=== PATIENT | female | born 1955 | race American Indian/Alaskan Native ===

== ENCOUNTER 2017-01-23 14:44 | Outpatient (CLI) | payer OTHER ==
--- NOTE | 2017-01-23 16:14 | Mammography Report ---
BILATERAL DIGITAL SCREENING MAMMOGRAM with CAD: 01/23/17 CLINICAL: Routine screening. COMPARISON:None available. However, a prior mammogram was apparently done at [facility]. FINDINGS: The breasts are almost entirely fatty. Right low density asymmetries require comparison with the prior mammogram.No architectural distortion or suspicious calcifications.The left breast is negative. IMPRESSION: Right asymmetries requiring further evaluation. BI-RADS CATEGORY: 0 -- Additional Evaluation Required RECOMMENDATION: Comparison with a previous mammogram. We will attempt to obtain a prior mammogram and May comparison. If we do not obtain a prior mammogram within 30 days, a revised report will be issued recommending a recall. Please be advised that the patient should not schedule an appointment for return until adequate time (at least 2 weeks) has passed for us to obtain the prior mammogram. ACR BI-RADS MAMMOGRAPHIC CODES: 0 = Needs additional imaging evaluation; 1 = Negative; 2 = Benign; 3 = Probably benign; 4 = Suspicious; 5 = Malignant; 6 = Known biopsy-proven malignancy COMMENT: 1. Dense breast tissue, i.e., adenosis, fibrocystic changes, etc., may obscure an underlying neoplasm. 2. Approximately 10% of cancers are not detected with mammography. 3. A negative mammography report should not delay biopsy if a clinically suspicious mass is present. COMMENT: Patient follow-up letters are generated via our [employer] application.
== END 2017-01-23 14:45 | disposition home or self-care (01) ==
LOC: SPVWC 14:44
PROVIDERS: ATTEND Family Medicine
DX: Z12.31 Encounter for screening mammogram for malignant neoplasm of breast (principal)
CPT/HCPCS: 77067; G0202

== ENCOUNTER 2017-03-31 13:07 | Emergency (ER) | payer OTHER ==
[2017-03-31] MEDS ORDERED: TYLENOL/CODEINE PO ONE (17:47)
[2017-03-31] MEDS ORDERED: ZITHROMAX PO ONE (17:47)
[2017-03-31] MEDS ORDERED: DELTASONE PO ONE (17:47)
--- NOTE | 2017-03-31 17:52 | Emergency Department Report ---
HPI - General Chief Complaint: Upper Respiratory Infection Time Seen by Provider: 03/31/17 16:30 - HPI HPI: this is a 61-year-old female with a history of diabetes and hypertension on managed with medication presents to ED complaining of productive greenish cough for the past 3 days. Patient states she has been coughing intermittently throughout the day for the past 3 days and has been progressively worse. Patient states cough and has become so bad that she is constantly coughing. She denies fever/chills/nausea/vomiting/abdominal pain/chest pain/shortness of breath/headache/blurred vision or any other problems. ED Past Medical Hx - Past Medical History Hx Hypertension: Yes Hx CVA: Yes Hx Diabetes: Yes - Social History Smoking Status: Never Smoker Substance Use Type: None - Medications Home Medications: Home Medications Medication Instructions Recorded Confirmed Last Taken Type ALBUTEROL Inhaler [Proair] 2 puff IH QID PRN #1 pump 03/31/17 Unknown Rx Acetamin/Codeine 120-12Mg/5 ml 5 ml PO TID PRN #80 ml 03/31/17 Unknown Rx [Tylenol/Codeine 120-12 mg/5 ml] Azithromycin [Zithromax] 250 mg PO DAILY #4 tablet 03/31/17 Unknown Rx Prednisone [predniSONE 10 mg 10 mg PO .TAPER #1 tab.ds.pk 03/31/17 Unknown Rx (6-Day Pack, 21 Tabs)] guaiFENesin [Mucinex] 600 mg PO BID #30 tab.er.12h 03/31/17 Unknown Rx ED Review of Systems ROS: Stated complaint: HEADACHE Other details as noted in HPI Constitutional: denies: chills, fever Eyes: denies: eye pain, eye discharge, vision change ENT: denies: ear pain, throat pain, dental pain, hearing loss, congestion Respiratory: see HPI, cough, wheezing. denies: shortness of breath, SOB with exertion, SOB at rest Cardiovascular: denies: chest pain, palpitations Endocrine: no symptoms reported Gastrointestinal: denies: abdominal pain, nausea, vomiting, diarrhea, constipation, hematemesis Genitourinary: denies: urgency, dysuria, frequency, hematuria, discharge Musculoskeletal: denies: back pain, joint swelling, arthralgia, myalgia Skin: denies: rash, lesions, pruritus Neurological: denies: headache, weakness, numbness, paresthesias, confusion Psychiatric: denies: anxiety, depression Hematological/Lymphatic: denies: easy bleeding, easy bruising Physical Exam - Physical Exam Vital Signs: Vital Signs 03/31/17 14:14 Temperature 98.2 F Pulse Rate 73 Blood Pressure 161/95 O2 Sat by Pulse 98 Oximetry Physical Exam: GENERAL: Alert and oriented x3, no apparent distress, Normal Gait, atraumatic. HEAD: Head is normocephalic and a-traumatic. EYES: Extra ocular muscles are intact. Pupils are equal, round, and reactive to light and accommodation. EARS: symetrical, atraumatic, non tender, ear canal clear and moderate cerumen, tympanic membrance non inflamed. gross auditory nml bilaterally. NOSE: Nose symetrical, Nontender,Nares appeared normal. MOUTH:Mouth is well hydrated and without lesions. Tonsils nonerythematous or swollen, Uvula midline, Tongue not elevated. Mucous membranes are moist. Posterior pharynx clear, no exudate or lesions. Patent airways. NECK: Supple. Non edematous, No carotid bruits. No lymphadenopathy or thyromegaly. No C-spine tenderness LUNGS: Symetrical with respiration, mild wheezing bilat, no rales or crackles, adventitious breath sounds. no use of accessory muscles. HEART: S1, S2 present, regular rate and rhythm without murmur, no rubs, no gallops. NEUROLOGIC: The patient is cooperative with no focal neurologic deficits. Cranial nerves II through XII are grossly intact. Normal speech. SKIN: Warm and dry, No lesions, No ulceration or induration present. ED Course Vital Signs 03/31/17 14:14 Temperature 98.2 F Pulse Rate 73 Blood Pressure 161/95 O2 Sat by Pulse 98 Oximetry ED Medical Decision Making - Radiology Data Radiology results: report reviewed, image reviewed FINAL REPORT EXAM: XR CHEST ROUTINE 2V HISTORY: cough/celio/ TECHNIQUE: PA and lateral chest radiographs PRIORS: None. FINDINGS: No focal consolidations are seen in the lungs and there are no pleural effusions.The cardiomediastinal silhouette is within normal limits for size and contour. Sclerotic changes noted in the T10 vertebral body. Degenerative changes are seen in the spine. There are surgical clips in the upper abdomen. IMPRESSION: 1. No definite radiographic evidence of acute cardiopulmonary disease. 2. No focal infiltrate is identified. 3. Sclerotic change is noted in the T10 vertebral body. This may indicate metastatic disease. There are currently no studies available for direct comparison. This can be further assessed with CT, MRI or nuclear medicine bone scan if indicated. UNF Transcribed By: VIJAY Dictated By: ADITYA MAHONEY MD Electronically Authenticated By: ADITYA MAHONEY MD Signed Date/Time: 03/31/171934 - Medical Decision Making Patient presents with upper respiratory infection ED course: Chest x-ray ordered. Chest x-ray shows some sclerotic changes in the temporal body T10. Otherwise normal See above Patient received Tylenol 3, 60 mg of prednisone, azithromycin 500. Discussed x-ray findings the patient is to see above. Discussed the patient's medication as prescribed. Discussed chest x-ray findings the patient. I discussed the patient cannot rule out metastatic disease so she needs to follow up with primary care physician as well as specialist as referred. Discussed the patient's definitive follow-up care result a metastatic disease such as cancer or worse . Patient understands discussion. She states she will follow up. Patient is alert and oriented 3 vital signs are normal she is in no acute distress She understands instructions given discussed the patient in follow-up. Primary care physician 5-7 days. Critical care attestation.: If time is entered above; I have spent that time in minutes in the direct care of this critically ill patient, excluding procedure time. ED Disposition Clinical Impression: URI with cough and congestion, Bony sclerosis Disposition: DISCHARGED TO HOME OR SELFCARE Is pt being admited?: No Does the pt Need Aspirin: No Condition: Stable Instructions: Upper Respiratory Infection (ED), Bone Scintigraphy (ED) Prescriptions: Acetamin/Codeine 120-12Mg/5 ml [Tylenol/Codeine 120-12 mg/5 ml] 5 ml PO TID PRN #80 ml PRN Reason: Pain ALBUTEROL Inhaler [Proair] 2 puff IH QID PRN #1 pump PRN Reason: Shortness Of Breath Azithromycin [Zithromax] 250 mg PO DAILY #4 tablet guaiFENesin [Mucinex] 600 mg PO BID #30 tab.er.12h Prednisone [predniSONE 10 mg (6-Day Pack, 21 Tabs)] 10 mg PO .TAPER #1 tab.ds.pk Referrals: PRIMARY CARE, [Primary Care Provider] - 3-5 Days CLEOPATRA CHAVEZ MD [Advanced Practice Nurse] - 3-[address] MD [Staff Physician] - 3-5 Days FELI SAWYER MD [Staff Physician] - 3-5 Days LIBERTY AGUILA MD [Staff Physician] - 3-5 Days MAGDA DIA MD [Referring] - 3-[address] [facility] [place] [Outside] - 3-5 Days Forms: Accompanied Note, Work/School Release Form(ED) Time of Disposition: 20:42
[2017-03-31] MEDS ORDERED: DUONEB 0.5 MG-3 MG/3 ML SOLN IH ONE (18:10)
--- NOTE | 2017-03-31 19:40 | XRay Report ---
FINAL REPORT EXAM: XR CHEST ROUTINE 2V HISTORY: cough/celio/ TECHNIQUE: PA and lateral chest radiographs PRIORS: None. FINDINGS: No focal consolidations are seen in the lungs and there are no pleural effusions.The cardiomediastinal silhouette is within normal limits for size and contour. Sclerotic changes noted in the T10 vertebral body. Degenerative changes are seen in the spine. There are surgical clips in the upper abdomen. IMPRESSION: 1. No definite radiographic evidence of acute cardiopulmonary disease. 2. No focal infiltrate is identified. 3. Sclerotic change is noted in the T10 vertebral body. This may indicate metastatic disease. There are currently no studies available for direct comparison. This can be further assessed with CT, MRI or nuclear medicine bone scan if indicated. UNF
[2017-03-31 20:06] VITALS: BP 150/83
== END 2017-03-31 20:55 | disposition home or self-care (01) ==
LOC: ED 13:07
DX: J06.9 Acute upper respiratory infection, unspecified (principal); M89.9 Disorder of bone, unspecified; R09.81 Nasal congestion; R05 Cough; I10 Essential (primary) hypertension; I63.9 Cerebral infarction, unspecified; E11.9 Type 2 diabetes mellitus without complications
CPT/HCPCS: 71020; 94640; 96372; 99283; J2930

== ENCOUNTER 2017-12-16 16:02 | Emergency (ER) | payer OTHER ==
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
[2017-12-16 23:05] VITALS: BP 169/89
== END 2017-12-16 23:03 | disposition home or self-care (01) ==
LOC: ED 16:02
DX: S39.012A Strain of muscle, fascia and tendon of lower back, initial encounter (principal); V49.49XA Driver injured in collision with other motor vehicles in traffic accident, initial encounter; Y93.89 Activity, other specified; Y92.89 Other specified places as the place of occurrence of the external cause; Y99.8 Other external cause status
CPT/HCPCS: 99282

== ENCOUNTER 2018-03-05 15:17 | Outpatient (CLI) | payer OTHER ==
--- NOTE | 2018-03-05 16:37 | Mammography Report ---
BILATERAL DIGITAL SCREENING MAMMOGRAM with CAD: 03/05/18 15:17:00 CLINICAL: Routine screening. COMPARISON:01/23/17 FINDINGS: The breasts are almost entirely fatty. No new mass, architectural distortion or suspicious calcifications. IMPRESSION: No mammographic evidence of malignancy. BI-RADS CATEGORY: 2 -- Benign RECOMMENDATION: Routine mammographic screening in one year. COMMENT: Patient follow-up letters are generated by our [employer] application.
--- NOTE | 2018-03-05 16:38 | Mammography Report ---
BONE DEXA:03/05/18 15:17:00 CLINICAL: Postmenopausal. No comparison. TECHNIQUE: Two site bone DEXA performed on an Hologic scanner. FINDINGS: The average BMD of the lumbar spine L1-L4 is 1.386g/cm squared with a T-score of +2.1 and a Z-score of +4.0. The average BMD of the left hip is 1.193g/cm squared with a T-score of +1.0 and a Z-score of +2.0. IMPRESSION: WHO classification: Normal with average fracture risk based on both spine and left hip measurements. RECOMMENDATION: Clinical correlation and routine screening. DEFINITIONS: BMD = Bone Mineral Density T-score = BMD related to mean peak bone mass of young adult (mean expressed in Standard Deviation) Z-score = Age matched BMD expressed in SD World Health Organization (WHO) Diagnostic Criteria Normal T-score > -1 SD Osteopenia T-score between -1 and -2.4 SD Osteoporosis T-score -2.5 SD or below NOTE: BMD is not the only risk factor for fracture. One should also consider factors such as the patient's age, risk of falling, previous osteoporotic fracture, family history of osteoporotic fractures, current smoker, and low body weight. Z-scores are not calculated if >80 years of age.
== END 2018-03-05 15:18 | disposition home or self-care (01) ==
LOC: SPVWC 15:17
PROVIDERS: ATTEND Family Medicine
DX: Z12.31 Encounter for screening mammogram for malignant neoplasm of breast (principal); Z13.820 Encounter for screening for osteoporosis; Z78.0 Asymptomatic menopausal state
CPT/HCPCS: 77067; 77080

== ENCOUNTER 2018-06-07 00:16 | Emergency (ER) | payer OTHER ==
[2018-06-07] MEDS ORDERED: ASPIRIN PO ONE (01:24)
[2018-06-07 01:38] LABS: Basophils # (Auto) 0.1 K/mm3 (0.0-0.1); Basophils % (Auto) 1.4 % (0.0-1.8); Eosinophils # (Auto) 0.1 K/mm3 (0.0-0.4); Eosinophils % (Auto) 1.9 % (0.0-4.3); Hematocrit 40.5 % (30.3-42.9); Hemoglobin 13.4 gm/dl (10.1-14.3); Lymphocytes # (Auto) 3.1 K/mm3 (1.2-5.4); Lymphocytes % (Auto) 41.8 % (13.4-35.0); Mean Corpuscular HGB Conc 33 % (30-34); Mean Corpuscular Hemoglobin 28 pg (28-32); Mean Corpuscular Volume 83 fl (79-97); Monocytes # (Auto) 0.7 K/mm3 (0.0-0.8); Monocytes % (Auto) 9.1 % (0.0-7.3); Platelet Count 215 K/mm3 (140-440); Red Blood Count 4.88 M/mm3 (3.65-5.03); Red Cell Distribution Width 14.9 % (13.2-15.2)
[2018-06-07 02:20] LABS: BUN/Creatinine Ratio 27; Blood Urea Nitrogen 16 mg/dL (7-17); Calcium 9.4 mg/dL (8.4-10.2); Hemolysis Index 11
--- NOTE | 2018-06-07 03:16 | Emergency Department Report ---
HPI - General Chief Complaint: Chest Pain Time Seen by Provider: 06/07/18 03:13 - HPI HPI: 63-year-old female with no medical history of any CAD presents to ER with no sided chest pain, that started yesterday. She is currently pain-free. She describes the pain as sharp, and also had numbness in the left side. 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 Her blood pressure was high at the time. She took her medicine which improved the pain. She denies any diaphoresis, shortness of breath, PND or orthopnea. ED Past Medical Hx - Past Medical History Hx Hypertension: Yes Hx CVA: Yes Hx Diabetes: Yes - Social History Smoking Status: Never Smoker Substance Use Type: None - Medications Home Medications: Home Medications Medication Instructions Recorded Confirmed Last Taken Type ALBUTEROL Inhaler [Proair] 2 puff IH QID PRN #1 pump 03/31/17 Unknown Rx Acetamin/Codeine 120-12Mg/5 ml 5 ml PO TID PRN #80 ml 03/31/17 Unknown Rx [Tylenol/Codeine 120-12 mg/5 ml] Azithromycin [Zithromax] 250 mg PO DAILY #4 tablet 03/31/17 Unknown Rx Prednisone [predniSONE 10 mg 10 mg PO .TAPER #1 tab.ds.pk 03/31/17 Unknown Rx (6-Day Pack, 21 Tabs)] guaiFENesin [Mucinex] 600 mg PO BID #30 tab.er.12h 03/31/17 Unknown Rx Cyclobenzaprine [Flexeril] 10 mg PO QHS PRN #20 tablet 12/16/17 Unknown Rx Naproxen [Naprosyn] 500 mg PO BID #30 tablet 12/16/17 Unknown Rx ED Review of Systems ROS: Stated complaint: CHEST PAIN,NUMBNESS IN LEFT ARM Other details as noted in HPI Comment: All other systems reviewed and negative Cardiovascular: chest pain Gastrointestinal: nausea Physical Exam - Physical Exam Vital Signs: Vital Signs 06/07/18 01:19 Temperature 98.7 F Pulse Rate 72 Respiratory 16 Rate Blood Pressure 186/94 O2 Sat by Pulse 98 Oximetry Physical Exam: GENERAL: Alert, well developed, in no acute distress. MENTAL STATUS: Judgment and insight appropriate for age. Oriented to time, place and person. No recent loss of memory. Affect appropriate for age. EYES: Pupils are equal and reactive to light. No hemorrhages or exudates. Extraocular muscles intact. EAR, NOSE AND THROAT: Oropharynx clean, mucous membranes moist. Ears and nose without masses, lesions or deformities. Tympanic membranes clear bilaterally. Trachea midline. No lymph node swelling or tenderness. RESPIRATORY: Clear to auscultation and percussion. No wheezing, rales or rhonchi. CARDIOVASCULAR: Heart sounds normal. No thrills. Regular rate and rhythm, no murmurs, rubs or gallops. GASTROINTESTINAL: Abdomen soft, nondistended. No pulsatile mass, no flank tenderness or suprapubic tenderness. No hepatosplenomegaly. NEUROLOGIC: Cranial nerves II-XII grossly intact. No focal neurological deficits. Deep tendon reflexes +2 bilaterally. Babinski negative. Moves all extremities spontaneously. Sensation intact bilaterally. SKIN: No rashes or lesions. No petechia. No purpura. Good turgor. No edema. MUSCULOSKELETAL: No cyanosis or clubbing. No gross deformities. Capable of free range of motion without pain or crepitation. No laxity, instability or dislocation. BONE: No misalignment, asymmetry, defect, tenderness or effusion. Capable of from of joint above and below bone. MUSCLE: No crepitation, defect, tenderness, masses or swellings. No loss of muscle tone or strength. LYMPHATIC: Palpation of neck reveals no swelling or tenderness of neck nodes. Palpation of groin reveals no swelling or tenderness of groin nodes. ED Course Vital Signs 06/07/18 01:19 Temperature 98.7 F Pulse Rate 72 Respiratory 16 Rate Blood Pressure 186/94 O2 Sat by Pulse 98 Oximetry ED Medical Decision Making - Lab Data Result diagrams: 06/07/18 01:26 06/07/18 01:26 Critical care attestation.: If time is entered above; I have spent that time in minutes in the direct care of this critically ill patient, excluding procedure time. ED Disposition Clinical Impression: Chest pain Qualifiers: Chest pain type: other chest pain Qualified Code(s): R07.89 - Other chest pain Disposition: - TO HOME OR SELFCARE Is pt being admited?: No Does the pt Need Aspirin: No Condition: Stable Instructions: Chest Pain (ED) Referrals: PRIMARY CARE, [Primary Care Provider] - 3-5 Days
[2018-06-07 06:28] VITALS: BP 159/87
== END 2018-06-07 06:22 | disposition home or self-care (01) ==
LOC: ED 00:16
DX: R07.89 Other chest pain (principal); R20.0 Anesthesia of skin; I10 Essential (primary) hypertension; E11.9 Type 2 diabetes mellitus without complications; Z86.73 Personal history of transient ischemic attack (TIA), and cerebral infarction without residual deficits
CPT/HCPCS: 36415; 80048; 84484; 85025; 93005; 93010; 99284

== ENCOUNTER 2019-03-17 14:31 | Outpatient (CLI) | payer OTHER ==
--- NOTE | 2019-03-18 08:15 | Mammography Report ---
BILATERAL DIGITAL SCREENING MAMMOGRAM with CAD: 03/17/19 14:31:00 CLINICAL: Routine screening. COMPARISON:03/05/18 FINDINGS: The breasts are almost entirely fatty.Stable bilateral low-density circumscribed right masses. No new mass, architectural distortion or suspicious calcifications. IMPRESSION: No mammographic evidence of malignancy. BI-RADS CATEGORY: 2 - - Benign RECOMMENDATION: Routine mammographic screening in one year. COMMENT: Patient follow-up letters are generated by our [employer] application.
== END 2019-03-17 14:32 | disposition home or self-care (01) ==
LOC: SPVWC 14:31
PROVIDERS: ATTEND Family Medicine
DX: Z12.31 Encounter for screening mammogram for malignant neoplasm of breast (principal); I10 Essential (primary) hypertension
CPT/HCPCS: 77067

== ENCOUNTER 2019-05-24 15:24 | Outpatient (CLI) | payer OTHER ==
--- NOTE | 2019-05-25 08:40 | Mammography Report ---
Bone densitometry. History: PAGETS BONE DISEASE Procedure: Patient scanned on an Hologic DEXA System. Examination was performed of the lumbar spine and left hip. Comparison: 03/05/2018. Findings: The BMD of the lumbar spine is 1.383 gm/cm2 with a T-score of +2.3 and a Z score of +4.2. Percent ch harinder from previous exam is -1.5. The bone mineral density (BMD) of the left femoral neck is 0.897 gm/cm2 with a T-score of -0.4 and a Z score of +0.9. The BMD of the total left hip is 1.201 gm/cm2 with a T-score of +1.1 and a Z score o f +2.1. Percent change from the previous exam is +0.6 . Impression: WHO classification: Normal with average fracture risk based on both spine and left hip me asurements. Signer Name: Kranthi Guo MD Signed: 05/25/2019 8:35 AM Workstation Name: [id number]
== END 2019-05-24 15:25 | disposition home or self-care (01) ==
LOC: SPVWC 15:24
PROVIDERS: ATTEND Family Medicine
DX: M88.9 Osteitis deformans of unspecified bone (principal); I10 Essential (primary) hypertension
CPT/HCPCS: 77080

== ENCOUNTER 2020-08-07 01:28 | Emergency (ER) | payer MEDICARE ==
[2020-08-07 02:15] LABS: Basophils # (Auto) 0.1 K/mm3 (0.0-0.1); Basophils % (Auto) 0.9 % (0.0-1.8); Eosinophils # (Auto) 0.2 K/mm3 (0.0-0.4); Eosinophils % (Auto) 2.5 % (0.0-4.3); Hematocrit 40.1 % (30.3-42.9); Hemoglobin 13.3 gm/dl (10.1-14.3); Lymphocytes # (Auto) 2.6 K/mm3 (1.2-5.4); Lymphocytes % (Auto) 39.4 % (13.4-35.0); Mean Corpuscular HGB Conc 33 % (30-34); Mean Corpuscular Volume 86 fl (79-97); Monocytes # (Auto) 0.6 K/mm3 (0.0-0.8); Monocytes % (Auto) 8.9 % (0.0-7.3); Platelet Count 165 K/mm3 (140-440); Red Blood Count 4.69 M/mm3 (3.65-5.03); Red Cell Distribution Width 14.5 % (13.2-15.2)
[2020-08-07 02:37] LABS: Blood Urea Nitrogen 11 mg/dL (7-17); Calcium 9.4 mg/dL (8.4-10.2); Hemolysis Index 3
--- NOTE | 2020-08-07 02:44 | XRay Report ---
CHEST 1 VIEW INDICATION: Chest Pain COMPARISON: 03/31/2017 FINDINGS: Support devices: None Heart: Normal Lungs/Pleura: No acute pulmonary or pleural findings. IMPRESSION: 1. No acute disease. Signer Name: Angel Bonds MD Signed: 08/07/2020 2:39 AM Workstation Name: [id number]
[2020-08-07 02:56] LABS: BUN/Creatinine Ratio 22
--- NOTE | 2020-08-07 09:33 | Emergency Department Report ---
ED General Adult HPI - General Chief complaint: Chest Pain Stated complaint: CHEST PAIN, ELEVATED BLOOD PRESSURE, BLURRED VISIO Time Seen by Provider: 08/07/20 09:13 Source: patient Mode of arrival: Ambulatory Limitations: No Limitations - History of Present Illness Initial comments: The patient presents to the emergency department the chief complaint left-sided chest pain that started at 2:30 PM yesterday. Patient describes the pain as a dullness and consistent chest pain. Patient denies any shortness of breath or abdominal pain. 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 -: Sudden Location: chest Radiation: non-radiation Severity scale (0 -10): 6 Quality: aching, constant Consistency: constant Improves with: none Worsens with: none Associated Symptoms: denies other symptoms Treatments Prior to Arrival: none - Related Data Home Medications Medication Instructions Recorded Confirmed Last Taken Metoprolol [Lopressor TAB] 50 mg PO BID 08/07/20 08/07/20 Unknown Olmesartan/Hydrochlorothiazide 1 each PO DAILY 08/07/20 08/07/20 Unknown [Olmesartan-Hctz 20-12.5 mg Tab] Previous Rx's Medication Instructions Recorded Last Taken Type Albuterol Mdi (or & Nicu Only) 2 puff IH QID PRN #1 pump 03/31/17 Unknown Rx [Proair] guaiFENesin [Mucinex] 600 mg PO BID #30 tab.er.12h 03/31/17 Unknown Rx Naproxen [Naprosyn] 500 mg PO BID #30 tablet 12/16/17 Unknown Rx Allergies Allergy/AdvReac Type Severity Reaction Status Date / Time No Known Allergies Allergy Verified 03/31/17 14:17 ED Review of Systems ROS: Stated complaint: CHEST PAIN, ELEVATED BLOOD PRESSURE, BLURRED VISIO Other details as noted in HPI Constitutional: denies: chills, fever Eyes: denies: eye pain, eye discharge, vision change ENT: denies: ear pain, throat pain Respiratory: denies: cough, shortness of breath, wheezing Cardiovascular: chest pain. denies: palpitations Endocrine: no symptoms reported Gastrointestinal: denies: abdominal pain, nausea, diarrhea Genitourinary: denies: urgency, dysuria, discharge Musculoskeletal: denies: back pain, joint swelling, arthralgia Skin: denies: rash, lesions Neurological: denies: headache, weakness, paresthesias Psychiatric: denies: anxiety, depression Hematological/Lymphatic: denies: easy bleeding, easy bruising ED Past Medical Hx - Past Medical History Previous Medical History?: Yes Hx Hypertension: Yes Hx CVA: Yes (No deficits) Hx Diabetes: Yes - Surgical History Past Surgical History?: Yes Hx Cholecystectomy: Yes Additional Surgical History: Tubaligation - Social History Smoking Status: Never Smoker Substance Use Type: None - Medications Home Medications: Home Medications Medication Instructions Recorded Confirmed Last Taken Type Albuterol Mdi (or & Nicu Only) 2 puff IH QID PRN #1 pump 03/31/17 08/07/20 Unknown Rx [Proair] guaiFENesin [Mucinex] 600 mg PO BID #30 tab.er.12h 03/31/17 08/07/20 Unknown Rx Naproxen [Naprosyn] 500 mg PO BID #30 tablet 12/16/17 08/07/20 Unknown Rx Metoprolol [Lopressor TAB] 50 mg PO BID 08/07/20 08/07/20 Unknown History Olmesartan/Hydrochlorothiazide 1 each PO DAILY 08/07/20 08/07/20 Unknown History [Olmesartan-Hctz 20-12.5 mg Tab] ED Physical Exam - General Limitations: No Limitations General appearance: alert, in no apparent distress - Head Head exam: Present: atraumatic, normocephalic - Eye Eye exam: Present: normal appearance, PERRL, EOMI - ENT ENT exam: Present: mucous membranes moist - Neck Neck exam: Present: normal inspection - Respiratory Respiratory exam: Present: normal lung sounds bilaterally. Absent: respiratory distress - Cardiovascular Cardiovascular Exam: Present: regular rate, normal rhythm. Absent: systolic murmur, diastolic murmur, rubs, gallop - GI/Abdominal GI/Abdominal exam: Present: soft, normal bowel sounds. Absent: distended, tenderness - Extremities Exam Extremities exam: Present: normal inspection - Back Exam Back exam: Present: normal inspection - Neurological Exam Neurological exam: Present: alert, oriented X3, CN II-XII intact. Absent: motor sensory deficit - Psychiatric Psychiatric exam: Present: normal affect, normal mood - Skin Skin exam: Present: warm, dry, intact, normal color. Absent: rash ED Course Vital Signs 08/07/20 08/07/20 08/07/20 01:48 04:31 08:09 Temperature 98 F Pulse Rate 79 75 73 Respiratory 18 18 17 Rate Blood Pressure 173/83 181/89 195/92 [Right] O2 Sat by Pulse 97 99 99 Oximetry ED Medical Decision Making - Lab Data Result diagrams: 08/07/20 02:01 08/07/20 02:01 Lab Results 08/07/20 08/07/20 08/07/20 Range/Units 02:01 02:01 04:46 WBC 6.5 (4.5-11.0) K/mm3 RBC 4.69 (3.65-5.03) M/mm3 Hgb 13.3 (10.1-14.3) gm/dl Hct 40.1 (30.3-42.9) % MCV 86 (79-97) fl MCH 28 (28-32) pg MCHC 33 (30-34) % RDW 14.5 (13.2-15.2) % Plt Count 165 (140-440) K/mm3 Lymph % (Auto) 39.4 H (13.4-35.0) % [place] % (Auto) 8.9 H (0.0-7.3) % Eos % (Auto) 2.5 (0.0-4.3) % Baso % (Auto) 0.9 (0.0-1.8) % Lymph # (Auto) 2.6 (1.2-5.4) K/mm3 [place] # (Auto) 0.6 (0.0-0.8) K/mm3 Eos # (Auto) 0.2 (0.0-0.4) K/mm3 Baso # (Auto) 0.1 (0.0-0.1) K/mm3 Seg Neutrophils % 48.3 (40.0-70.0) % Seg Neutrophils # 3.1 (1.8-7.7) K/mm3 Sodium 139 (137-145) mmol/L Potassium 4.0 (3.6-5.0) mmol/L Chloride 96.5 L (98-107) mmol/L Carbon Dioxide 28 (22-30) mmol/L Anion Gap 19 mmol/L BUN 11 (7-17) mg/dL Creatinine 0.5 L (0.6-1.2) mg/dL Estimated GFR > 60 ml/min BUN/Creatinine Ratio 22 % Glucose 281 H (65-100) mg/dL Calcium 9.4 (8.4-10.2) mg/dL Troponin T < 0.010 < 0.010 (0.00-0.029) ng/mL 08/07/20 Range/Units 07:58 WBC (4.5-11.0) K/mm3 RBC (3.65-5.03) M/mm3 Hgb (10.1-14.3) gm/dl Hct (30.3-42.9) % MCV (79-97) fl MCH (28-32) pg MCHC (30-34) % RDW (13.2-15.2) % Plt Count (140-440) K/mm3 Lymph % (Auto) (13.4-35.0) % [place] % (Auto) (0.0-7.3) % Eos % (Auto) (0.0-4.3) % Baso % (Auto) (0.0-1.8) % Lymph # (Auto) (1.2-5.4) K/mm3 [place] # (Auto) (0.0-0.8) K/mm3 Eos # (Auto) (0.0-0.4) K/mm3 Baso # (Auto) (0.0-0.1) K/mm3 Seg Neutrophils % (40.0-70.0) % Seg Neutrophils # (1.8-7.7) K/mm3 Sodium (137-145) mmol/L Potassium (3.6-5.0) mmol/L Chloride (98-107) mmol/L Carbon Dioxide (22-30) mmol/L Anion Gap mmol/L BUN (7-17) mg/dL Creatinine (0.6-1.2) mg/dL Estimated GFR ml/min BUN/Creatinine Ratio % Glucose (65-100) mg/dL Calcium (8.4-10.2) mg/dL Troponin T < 0.010 (0.00-0.029) ng/mL - EKG Data -: EKG Interpreted by Me EKG shows normal: sinus rhythm Rate: normal - EKG Data 08/07/20 09:29 LAD - Medical Decision Making Discussed results with patient Critical care attestation.: If time is entered above; I have spent that time in minutes in the direct care of this critically ill patient, excluding procedure time. ED Disposition Clinical Impression: Chest pain Disposition: DC-01 TO HOME OR SELFCARE Is pt being admited?: No Does the pt Need Aspirin: No Condition: Stable Instructions: Chest Pain (ED) Additional Instructions: return if worse Referrals: PRIMARY CARE, [Primary Care Provider] - 3-5 Days PATI GOLD MD [Staff Physician] - 3-5 Days Time of Disposition: 09:30
[2020-08-07 09:48] VITALS: BP 176/88
== END 2020-08-07 09:45 | disposition home or self-care (01) ==
LOC: ED 01:28
DX: R07.89 Other chest pain (principal); I10 Essential (primary) hypertension; E11.9 Type 2 diabetes mellitus without complications; Z79.899 Other long term (current) drug therapy; Z86.73 Personal history of transient ischemic attack (TIA), and cerebral infarction without residual deficits; Z90.49 Acquired absence of other specified parts of digestive tract; Z98.51 Tubal ligation status
CPT/HCPCS: 36415; 71045; 80048; 84484; 85025; 93005

== ENCOUNTER 2021-03-28 18:10 | Emergency (ER) | payer MEDICARE ==
[2021-03-28 19:49] VITALS: BP 144/76
[2021-03-28] MEDS ORDERED: ASPIRIN 81 MG TAB CHEW PO ONE (20:14)
--- NOTE | 2021-03-28 20:16 | Event Note ---
ED Screening Note ED Screening Note: Patient is a 65-year-old female presents emergency room complaints of right arm tingling and feeling like it was falling asleep that occurred yesterday She states that her left arm began to feel the same She states that she was having left-sided chest pain She states that she is also having lightheadedness, dizziness, headache States that she had similar symptoms approximately a week or 2 ago She states that her sock ironer is Dr. Eliza Perez She denies any nausea, vomiting, diarrhea, diaphoresis, shortness of breath, leg swelling Past medical history of diabetes, CVA No allergies to medicines She states that she took 81 mg aspirin today This initial assessment/diagnostic orders/clinical plan/treatment(s) is/are subject to change based on patients health status, clinical progression and re- assessment by fellow clinical providers in the ED. Further treatment and workup at subsequent clinical providers discretion. Patient/guardian urged not to elope from the ED as their condition may be serious if not clinically assessed and managed. Initial orders include: Chest pain protocol, CT head
--- NOTE | 2021-03-28 20:36 | XRay Report ---
CHEST 2 VIEWS INDICATION / CLINICAL INFORMATION: Chest Pain. COMPARISON: 08/07/2020 FINDINGS: SUPPORT DEVICES: None. HEART / MEDIASTINUM: No significant abnormality. LUNGS / PLEURA: No significant pulmonary or pleural abnormality. No pneumothorax. ADDITIONAL FINDINGS: No significant additional findings. IMPRESSION: No significant abnormality or interval change from 08/07/2020 Signer Name: Vamshi Novak MD FACR Signed: 03/28/2021 8:32 PM Workstation Name: [id number]
[2021-03-28 20:53] LABS: Alanine Aminotransferase 26 units/L (7-56); Blood Urea Nitrogen 20 mg/dL (7-17); Calcium 9.4 mg/dL (8.4-10.2); Hemolysis Index 18
[2021-03-28 20:54] LABS: BUN/Creatinine Ratio 29
[2021-03-28 20:56] LABS: Basophils # (Auto) 0.1 K/mm3 (0.0-0.1); Basophils % (Auto) 1.2 % (0.0-1.8); Eosinophils # (Auto) 0.1 K/mm3 (0.0-0.4); Eosinophils % (Auto) 2.1 % (0.0-4.3); Hematocrit 38.3 % (30.3-42.9); Hemoglobin 12.9 gm/dl (10.1-14.3); Lymphocytes # (Auto) 2.5 K/mm3 (1.2-5.4); Lymphocytes % (Auto) 36.6 % (13.4-35.0); Mean Corpuscular HGB Conc 34 % (30-34); Mean Corpuscular Volume 86 fl (79-97); Monocytes # (Auto) 0.6 K/mm3 (0.0-0.8); Monocytes % (Auto) 8.8 % (0.0-7.3); Platelet Count 174 K/mm3 (140-440); Red Blood Count 4.45 M/mm3 (3.65-5.03); Red Cell Distribution Width 14.1 % (13.2-15.2)
[2021-03-28 21:06] LABS: INR 0.94 (0.87-1.13); Partial Thromboplastin Time 24.3 Sec. (24.2-36.6)
--- NOTE | 2021-03-28 21:43 | Cat Scan Report ---
CT HEAD WITHOUT CONTRAST INDICATION / CLINICAL INFORMATION: lightheaded/dizziness, headache. TECHNIQUE: All CT scans at this location are performed using CT dose reduction for ALARA by means of automated e xposure control. COMPARISON: None available. FINDINGS: HEMORRHAGE: No evidence of intracranial hemorrhage or extra-axial fluid collection. EXTRA-AXIAL SPACES: Cortical sulci, sylvian fissures and basilar cisterns have an unremarkable appear ance. VENTRICULAR SYSTEM: The third and lateral ventricles are of normal size and configuration. CEREBRAL PARENCHYMA: No areas of abnormal brain parenchymal attenuation are identified. There is no i ndication of recent infarction. MIDLINE SHIFT OR HERNIATION: There is no mass effect. CEREBELLUM / BRAINSTEM: A well-circumscribed area of decreased attenuation is seen in the alexis to the left the midline. This likely represents a remote small deep pontine infarction. Brainstem and cereb ellum have an otherwise unremarkable appearance. MIDLINE STRUCTURES:No abnormalities of the pituitary gland or pineal region are identified. INTRACRANIAL VESSELS:No abnormalities are identified on this noncontrast head CT. ORBITS: visualized portions of the orbits have an unremarkable appearance. SOFT TISSUES of HEAD: No significant abnormality. CALVARIUM: Evaluation of bone windows reveals no abnormalities. PARANASAL SINUSES / MASTOID AIR CELLS: Visualized portions of the paranasal sinuses are free from inf lammatory mucosal disease. Mastoid air cells are normally pneumatized. IMPRESSION: 1. 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 2. No additional abnormalities are identified on head CT without contrast. Signer Name: Azam Morgan MD Signed: 03/28/2021 9:39 PM Workstation Name: [id number]
--- NOTE | 2021-03-29 02:48 | Emergency Department Report ---
ED Chest Pain HPI - General Chief Complaint: Chest Pain Stated Complaint: RT ARM PAINS/CHEST DISCOMFORT Time Seen by Provider: 03/28/21 20:13 Source: patient Mode of arrival: Ambulatory Limitations: No Limitations - History of Present Illness Initial Comments: Patient is a 65-year-old female presents emergency room complaints of right arm tingling and feeling like it was falling asleep that occurred yesterday She states that her left arm began to feel the same She states that she was having left-sided chest pain, she states that she is also having l ightheadedness, dizziness, headache ,States that she had similar symptoms approximately a week or 2 ago ,She states that her market developer is Dr. Eliza Perez, She denies any nausea, vomiting, diarrhea, diaphoresis, shortness of breath, leg swelling, Past medical history of diabetes, CVA No allergies to medicines, She states that she took 81 mg aspirin today MD Complaint: chest pain - Related Data Home Medications Medication Instructions Recorded Confirmed Last Taken Metoprolol [Lopressor TAB] 50 mg PO BID 08/07/20 08/07/20 Unknown Olmesartan/Hydrochlorothiazide 1 each PO DAILY 08/07/20 08/07/20 Unknown [Olmesartan-Hctz 20-12.5 mg Tab] Previous Rx's Medication Instructions Recorded Last Taken Type Albuterol Mdi (or & Nicu Only) 2 puff IH QID PRN #1 pump 03/31/17 Unknown Rx [Proair] guaiFENesin [Mucinex] 600 mg PO BID #30 tab.er.12h 03/31/17 Unknown Rx Naproxen [Naprosyn] 500 mg PO BID #30 tablet 12/16/17 Unknown Rx traMADoL [Ultram] 50 mg PO Q6HR PRN #12 tablet 03/29/21 Unknown Rx Allergies Allergy/AdvReac Type Severity Reaction Status Date / Time No Known Allergies Allergy Verified 03/31/17 14:17 Heart Score - HEART Score History: Slightly suspicious EKG: Normal Age: > 65 Risk factors: 1-2 risk factors Troponin: < normal limit HEART Score: 3 - EKG Read Time Time EKG Completed: 18:20 EKG Read Time: 18:25 ED Review of Systems ROS: Stated complaint: RT ARM PAINS/CHEST DISCOMFORT Other details as noted in HPI Constitutional: denies: chills, fever Eyes: denies: eye pain, eye discharge, vision change ENT: denies: ear pain, throat pain Respiratory: denies: cough, shortness of breath, wheezing Cardiovascular: chest pain. denies: palpitations Endocrine: no symptoms reported Gastrointestinal: denies: abdominal pain, nausea, diarrhea Genitourinary: denies: urgency, dysuria, discharge Musculoskeletal: other (bilat arm pain and tingling ). denies: back pain, joint swelling, arthralgia Skin: denies: rash, lesions Neurological: denies: headache, weakness, paresthesias Psychiatric: anxiety. denies: depression Hematological/Lymphatic: denies: easy bleeding, easy bruising ED Past Medical Hx - Past Medical History Hx Hypertension: Yes Hx CVA: Yes (No deficits) Hx Diabetes: Yes - Surgical History Hx Cholecystectomy: Yes Additional Surgical History: Tubal ligation - Social History Smoking Status: Never Smoker Substance Use Type: None - Medications Home Medications: Home Medications Medication Instructions Recorded Confirmed Last Taken Type Albuterol Mdi (or & Nicu Only) 2 puff IH QID PRN #1 pump 03/31/17 08/07/20 Unknown Rx [Proair] guaiFENesin [Mucinex] 600 mg PO BID #30 tab.er.12h 03/31/17 08/07/20 Unknown Rx Naproxen [Naprosyn] 500 mg PO BID #30 tablet 12/16/17 08/07/20 Unknown Rx Metoprolol [Lopressor TAB] 50 mg PO BID 08/07/20 08/07/20 Unknown History Olmesartan/Hydrochlorothiazide 1 each PO DAILY 08/07/20 08/07/20 Unknown History [Olmesartan-Hctz 20-12.5 mg Tab] traMADoL [Ultram] 50 mg PO Q6HR PRN #12 tablet 03/29/21 Unknown Rx ED Physical Exam - General Limitations: No Limitations General appearance: alert, in no apparent distress - Head Head exam: Present: atraumatic, normocephalic - Eye Eye exam: Present: normal appearance, PERRL, EOMI Pupils: Present: normal accommodation - ENT ENT exam: Present: mucous membranes moist - Neck Neck exam: Present: normal inspection, full ROM. Absent: tenderness, meningismus, lymphadenopathy, thyromegaly - Expanded Neck Exam Expanded Neck exam: Absent: midline deformity, anterior neck swelling, thyroid mass, carotid bruit, tracheal deviation - Respiratory Respiratory exam: Present: normal lung sounds bilaterally. Absent: respiratory distress, wheezes, stridor, chest wall tenderness - Cardiovascular Cardiovascular Exam: Present: regular rate, normal rhythm, normal heart sounds. Absent: systolic murmur, diastolic murmur, rubs, gallop - GI/Abdominal GI/Abdominal exam: Present: soft, normal bowel sounds. Absent: distended, tenderness, guarding, rebound, rigid, bruit, hernia - Rectal Rectal exam: Present: deferred - Extremities Exam Extremities exam: Present: normal inspection, full ROM, normal capillary refill. Absent: pedal edema, joint swelling - Back Exam Back exam: Present: normal inspection, full ROM. Absent: tenderness, muscle spasm, paraspinal tenderness, vertebral tenderness - Neurological Exam Neurological exam: Present: alert, oriented X3, CN II-XII intact, normal gait, reflexes normal. Absent: motor sensory deficit - Expanded Neurological Exam Expanded Patient oriented to: Present: person, place, time Speech: Present: fluid speech Sensory exam: Upper Extremity Light Touch: Normal, Upper Extremity Pin Prick: Normal, Upper Extremity Temperature: Normal, UE 2 Point Discrimination: Normal Motor strength exam: RUE: 5, LUE: 5, RLE: 5, LLE: 5 DTR: bicep (R): 2+, bicep (L): 2+, tricep (R): 2+, tricep (L): 2+ Best Eye Response ([place]): (4) open spontaneously Best Motor Response ([place]): (6) obeys commands Best Verbal Response ([place]): (5) oriented Day[place] Total: 15 - Psychiatric Psychiatric exam: Present: normal affect, normal mood - Skin Skin exam: Present: warm, dry, intact, normal color. Absent: rash ED Course Vital Signs 03/28/21 19:46 Temperature 98.6 F Pulse Rate 84 Respiratory 18 Rate Blood Pressure 144/76 O2 Sat by Pulse 98 Oximetry QUINTIN score - Quintin Score Age > 65: (1) Yes Aspirin use within the Past 7 Days: (1) Yes 3 or more CAD Risk Factors: (1) Yes 2 or more Angina events in past 24 hrs: (0) No Known CAD with more than 50% Stenosis: (0) No Elevated Cardiac Markers: (0) No ST Deviation Greater than 0.5mm: (0) No QUINTIN Score: 3 ED Medical Decision Making - Lab Data Result diagrams: 03/28/21 20:20 03/28/21 20:20 Labs 03/28/21 03/28/21 03/28/21 20:20 20:20 20:20 WBC 6.9 RBC 4.45 Hgb 12.9 Hct 38.3 MCV 86 MCH 29 MCHC 34 RDW 14.1 Plt Count 174 Lymph % (Auto) 36.6 H [place] % (Auto) 8.8 H Eos % (Auto) 2.1 Baso % (Auto) 1.2 Lymph # (Auto) 2.5 [place] # (Auto) 0.6 Eos # (Auto) 0.1 Baso # (Auto) 0.1 Seg Neutrophils % 51.3 Seg Neutrophils # 3.6 PT 12.5 INR 0.94 APTT 24.3 Sodium 137 Potassium 3.7 Chloride 99.5 Carbon Dioxide 27 Anion Gap 14 BUN 20 H Creatinine 0.7 Estimated GFR > 60 BUN/Creatinine Ratio 29 Glucose 274 H Calcium 9.4 Total Bilirubin 0.30 AST 25 ALT 26 Alkaline Phosphatase 90 Troponin T < 0.010 Total Protein 7.4 Albumin 4.0 Albumin/Globulin Ratio 1.2 03/28/21 23:44 WBC RBC Hgb Hct MCV MCH MCHC RDW Plt Count Lymph % (Auto) [place] % (Auto) Eos % (Auto) Baso % (Auto) Lymph # (Auto) [place] # (Auto) Eos # (Auto) Baso # (Auto) Seg Neutrophils % Seg Neutrophils # PT INR APTT Sodium Potassium Chloride Carbon Dioxide Anion Gap BUN Creatinine Estimated GFR BUN/Creatinine Ratio Glucose Calcium Total Bilirubin AST ALT Alkaline Phosphatase Troponin T < 0.010 Total Protein Albumin Albumin/Globulin Ratio - Radiology Data Radiology results: report reviewed, image reviewed CT HEAD WITHOUT CONTRAST INDICATION / CLINICAL INFORMATION: lightheaded/dizziness, headache. TECHNIQUE: All CT scans at this location are performed using CT dose reduction for ALARA by means of automated exposure control. COMPARISON: None available. FINDINGS: HEMORRHAGE: No evidence of intracranial hemorrhage or extra-axial fluid collection. EXTRA-AXIAL SPACES: Cortical sulci, sylvian fissures and basilar cisterns have an unremarkable appearance. VENTRICULAR SYSTEM: The third and lateral ventricles are of normal size and configuration. CEREBRAL PARENCHYMA: No areas of abnormal brain parenchymal attenuation are identified. There is no indication of recent infarction. MIDLINE SHIFT OR HERNIATION: There is no mass effect. CEREBELLUM / BRAINSTEM: A well-circumscribed area of decreased attenuation is seen in the alexis to the left the midline. This likely represents a remote small deep pontine infarction. Brainstem and cerebellum have an otherwise unremarkable appearance. MIDLINE STRUCTURES:No abnormalities of the pituitary gland or pineal region are identified. INTRACRANIAL VESSELS:No abnormalities are identified on this noncontrast head CT. ORBITS: visualized portions of the orbits have an unremarka ble appearance. SOFT TISSUES of HEAD: No significant abnormality. CALVARIUM: Evaluation of bone windows reveals no abnormalities. PARANASAL SINUSES / MASTOID AIR CELLS: Visualized portions of the paranasal sinuses are free from inflammatory mucosal disease. Mastoid air cells are normally pneumatized. IMPRESSION: 1. 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 2. No additional abnormalities are identified on head CT without contrast. Signer Name: Azam Morgan MD Signed: 03/28/2021 9:39 PM Workstation Name: [id number] Transcribed By: Dictated By: Azam Morgan MD Electronically Authenticated By: Azam Morgan MD Signed Date/Time: 03/28/212138 DD/ 35 TD/TT: Fluoro Time In Minutes: CHEST 2 VIEWS INDICATION / CLINICAL INFORMATION: Chest Pain. COMPARISON: 08/07/2020 FINDINGS: SUPPORT DEVICES: None. HEART / MEDIASTINUM: No significant abnormality. LUNGS / PLEURA: No significant pulmonary or pleural abnormality. No pneumothorax. ADDITIONAL FINDINGS: No significant additional findings. IMPRESSION: No significant abnormality or interval change from 08/07/2020 Signer Name: Vamshi Novak MD FACR Signed: 03/28/2021 8:32 PM Workstation Name: [id number] Transcribed By: MS Dictated By: Vamshi Novak MD Electronically Authenticated By: Vamshi Novak MD Signed Date/Time: 03/28/212031 DD/ 30 TD/TT: - Medical Decision Making CT head normal, chest x-ray normal no infiltrates no opacities, EKG normal sinus rhythm no ST elevated PR, troponin negative x2 heart score is patient advises pain is relieved at this time to 0-1. Patient will be DC'd to home,3, take NSAIDs as needed for pain, follow-up with primary care doctor in 2 to 3 days. Patient will return to ER should symptoms worsen. Critical care attestation.: If time is entered above; I have spent that time in minutes in the direct care of this critically ill patient, excluding procedure time. ED Disposition Clinical Impression: Musculoskeletal pain Chest pain Qualifiers: Chest pain type: unspecified Qualified Code(s): R07.9 - Chest pain, unspecified Disposition: TO HOME OR SELFCARE Is pt being admited?: No Does the pt Need Aspirin: No Condition: Stable Instructions: Nonspecific Chest Pain, Adult, Musculoskeletal Pain Additional Instructions: Follow-up with your primary care doctor in 2 to 3 days. Take medications as prescribed. Return to emergency department should symptoms worsen. Prescriptions: traMADoL [Ultram] 50 mg PO Q6HR PRN #12 tablet PRN Reason: Pain Referrals: STONEY ESCOBEDO MD [Staff Physician] - 3-5 Days Forms: Work/School Release Form(ED) Time of Disposition: 03:40
--- NOTE | 2021-03-29 13:36 | Electrocardiograph Report ---
[facility] Test Date: 2021-03-28 Test Time: 20:06:36 Pat Name: NAA WARREN Department: Room: Gender: F [facility] Surveyor: CHRISTINA : 1955 Requested By: EDILBERTO DAVID Order Number: [id number] Reading MD: Jennifer Jennings Measurements Intervals [place] Rate: 85 P: 78 WI: 200 QRS: -31 QRSD: 94 T: 26 QT: 421 QTc: 502 Interpretive Statements Sinus rhythm Biatrial enlargement Left axis deviation No previous ECG available for comparison Electronically Signed On 03-29-2021 13:36:12 EDT by Jennifer Jennings
== END 2021-03-29 03:45 | disposition home or self-care (01) ==
LOC: ED 18:10
DX: R07.89 Other chest pain (principal); M79.601 Pain in right arm; R20.2 Paresthesia of skin; I10 Essential (primary) hypertension; E11.9 Type 2 diabetes mellitus without complications; Z90.49 Acquired absence of other specified parts of digestive tract; Z98.51 Tubal ligation status; Z86.73 Personal history of transient ischemic attack (TIA), and cerebral infarction without residual deficits; Z79.899 Other long term (current) drug therapy
CPT/HCPCS: 36415; 70450; 71046; 80053; 84484; 85025; 85610; 85730; 93005

== ENCOUNTER 2021-11-19 15:11 | Outpatient (CLI) | payer MEDICARE ==
--- NOTE | 2021-11-20 10:17 | Mammography Report ---
DIGITAL SCREENING MAMMOGRAM WITH CAD, 11/19/2021 CLINICAL INFORMATION / INDICATION: Routine screening mammography. SCREENING MAMMO Z12.31 TECHNIQUE: Digital bilateral 2D mammography was obtained in the craniocaudal and mediolateral obliqu e projections. This examination was interpreted with the benefit of Computer-Aided Detection analysis . COMPARISON: 03/17/2019 and 03/05/2018 FINDINGS: Breast Density: There are scattered areas of fibroglandular density. No dominant mass, suspicious calcifications, or architectural distortion in either breast. Stable nodular densities in both breasts. IMPRESSION: No mammographic evidence of malignancy. Follow up recommendation: Routine yearly BI-RADS Category 2: BENIGN. A "normal" or negative report should not discourage follow up or biopsy of a clinically significant f inding. A written summary of these findings will be mailed to the patient. The patient will be entered into a mammography reporting system which will generate a reminder letter for the patient's next appointmen t at the appropriate interval. The [employer] recommends yearly mammograms starting at age 40 and continuing as l kalyn as a woman is in good health. Breast MRI is recommended for women with an approximate 20-25% or greater lifetime risk of breast cancer, including women with a strong family history of breast or ova zay cancer or who have been treated for Hodgkin's disease. Signer Name: Rakesh Salgdao MD Signed: 11/20/2021 10:13 AM Workstation Name: [id number]
== END 2021-11-19 15:12 | disposition home or self-care (01) ==
LOC: SPVWC 15:11
PROVIDERS: ATTEND Family Medicine
DX: Z12.31 Encounter for screening mammogram for malignant neoplasm of breast (principal); N64.89 Other specified disorders of breast
CPT/HCPCS: 77067

== ENCOUNTER 2022-04-05 17:36 | Emergency (ER) | payer MEDICARE ==
[2022-04-05 18:04] VITALS: BP 148/81
[2022-04-05 19:14] LABS: Basophils # (Auto) 0.1 K/mm3 (0.0-0.1); Eosinophils # (Auto) 0.1 K/mm3 (0.0-0.4); Eosinophils % (Auto) 1.3 % (0.0-4.3); Hematocrit 33.9 % (30.3-42.9); Lymphocytes % (Auto) 26.7 % (13.4-35.0); Mean Corpuscular HGB Conc 32 % (30-34); Mean Corpuscular Volume 86 fl (79-97); Monocytes # (Auto) 0.6 K/mm3 (0.0-0.8); Monocytes % (Auto) 8.4 % (0.0-7.3); Platelet Count 217 K/mm3 (140-440); Red Blood Count 3.95 M/mm3 (3.65-5.03); Red Cell Distribution Width 14.2 % (13.2-15.2)
[2022-04-05 20:17] LABS: BUN/Creatinine Ratio 34; Blood Urea Nitrogen 27 mg/dL (7-17); Calcium 8.9 mg/dL (8.4-10.2); Hemolysis Index 6
== END 2022-04-05 21:00 | disposition left against medical advice (07) ==
LOC: ED 17:36
DX: R19.5 Other fecal abnormalities (principal); R42 Dizziness and giddiness; Z53.21 Procedure and treatment not carried out due to patient leaving prior to being seen by health care provider
CPT/HCPCS: 36415; 80048; 85025